=== PATIENT | female | born 1970 | race African-American/Black ===

== ENCOUNTER 2021-08-16 13:25 | Outpatient (CLI) | payer OTHER ==
[2021-08-17 13:00] LABS: SARS-CoV-2 PCR by NAA Not Detected (NotDetected)
== END 2021-08-16 13:26 | disposition home or self-care (01) ==
LOC: CSHLAB 13:25
PROVIDERS: ATTEND Internal Medicine Gastroenterology
DX: Z20.822 Contact with and (suspected) exposure to COVID-19 (principal); Z12.11 Encounter for screening for malignant neoplasm of colon
CPT/HCPCS: U0003; U0005

== ENCOUNTER 2021-08-19 06:15 | Day surgery (SDC) | payer OTHER ==
[2021-08-17 12:45] VITALS: BMI 34.7
[2021-08-19] MEDS ORDERED: PROPOFOL 40 ML ONE (08:33)
[2021-08-19] MEDS ORDERED: Lidocaine 1% PF 5 ML VIAL ONE (08:33)
[2021-08-19] MEDS ORDERED: PROPOFOL 20 ML ONE ×2 (09:02→09:15)
== END 2021-08-19 10:22 | disposition home or self-care (01) ==
LOC: CSHSDC 06:15
PROVIDERS: ATTEND Internal Medicine Gastroenterology
PROC: 0DJD8ZZ Inspection of Lower Intestinal Tract, Via Natural or Artificial Opening Endoscopic (ICD-10-PCS; principal; 2021-08-19)
DX: Z12.11 Encounter for screening for malignant neoplasm of colon (principal); K64.9 Unspecified hemorrhoids; Z80.0 Family history of malignant neoplasm of digestive organs; I10 Essential (primary) hypertension; E78.5 Hyperlipidemia, unspecified; J45.909 Unspecified asthma, uncomplicated; E66.9 Obesity, unspecified; K21.9 Gastro-esophageal reflux disease without esophagitis
CPT/HCPCS: J2704

== ENCOUNTER 2022-02-08 15:21 | Outpatient (CLI) | payer OTHER | END 2022-02-08 15:22 | disposition home or self-care (01) | LOC: CSHMAMMO 15:21 | PROVIDERS: ATTEND Internal Medicine | DX: Z12.31 Encounter for screening mammogram for malignant neoplasm of breast (principal) | CPT/HCPCS: 77063; 77067 ==

== ENCOUNTER 2023-03-30 15:12 | Outpatient (CLI) | payer OTHER | END 2023-03-30 15:13 | disposition home or self-care (01) | LOC: CSHMAMMO 15:12 | PROVIDERS: ATTEND Internal Medicine | DX: Z12.31 Encounter for screening mammogram for malignant neoplasm of breast (principal) | CPT/HCPCS: 77063; 77067 ==

== ENCOUNTER 2025-06-03 14:57 | Outpatient (CLI) | payer OTHER | END 2025-06-03 14:58 | disposition home or self-care (01) | LOC: CSHMAMMO 14:57 | PROVIDERS: ATTEND Internal Medicine | DX: Z12.31 Encounter for screening mammogram for malignant neoplasm of breast (principal); Z80.3 Family history of malignant neoplasm of breast | CPT/HCPCS: 77063; 77067 ==